=== PATIENT | female | born 1975 | race American Indian/Alaskan Native ===

== ENCOUNTER 2019-03-17 10:17 | Outpatient (CLI) | payer OTHER ==
--- NOTE | 2019-03-17 14:49 | Mammography Report ---
DIGITAL SCREENING MAMMOGRAM WITH CAD INDICATION: Baseline screening mammography. TECHNIQUE: Digital bilateral 2D mammography was obtained in the craniocaudal and mediolateral obliq ue projections. This examination was interpreted with the benefit of Computer-Aided Detection analysi s. FINDINGS: Breast Density: The breasts are heterogeneously dense, which may obscure small masses. There is no evidence of dominant mass, suspicious calcifications or architectural distortion in eith er breast. IMPRESSION: BI-RADS Category 1: Negative. No mammographic evidence of malignancy. Recommend routine screening m ammography in one year. A "normal" or negative report should not discourage follow up or biopsy of a clinically significant f inding. A written summary of these findings will be mailed to the patient. The patient will be entered into a mammography reporting system which will generate a reminder letter for the patient's next appointmen t at the appropriate interval. The [employer] recommends yearly mammograms starting at age 40 and continuing as l kristina as a woman is in good health. Breast MRI is recommended for women with an approximate 20-25% or greater lifetime risk of breast cancer, including women with a strong family history of breast or ova beni cancer or who have been treated for Hodgkin's disease. Signer Name: Elmo Anthony MD Signed: 03/17/2019 2:45 PM Workstation Name: [id number]
== END 2019-03-17 10:18 | disposition home or self-care (01) ==
LOC: MAMMO 10:17
PROVIDERS: ATTEND Obstetrics & Gynecology
DX: Z12.31 Encounter for screening mammogram for malignant neoplasm of breast (principal)
CPT/HCPCS: 77067

== ENCOUNTER 2022-05-11 10:04 | Outpatient (CLI) | payer OTHER ==
--- NOTE | 2022-05-17 12:27 | Mammography Report ---
LEFT DIGITAL DIAGNOSTIC MAMMOGRAM , 05/15/2022 LEFT LIMITED BREAST ULTRASOUND CLINICAL INFORMATION / INDICATION: 47-year-old female with palpable lump/fullness in the left axilla. TECHNIQUE: Digital left mammographic imaging was performed. Limited ultrasound was performed. COMPARISON: Prior mammogram 03/17/2019 FINDINGS: Breast Density: The breasts are heterogeneously dense, which may obscure small masses. MAMMOGRAPHIC FINDINGS: No dominant mass, suspicious calcifications, or architectural distortion in th e left breast. No interval change from 2019 mammogram. ULTRASOUND FINDINGS: Targeted ultrasound evaluation was performed of the area of interest. Sonograp hic evaluation of the left axilla did not demonstrate any suspicious abnormality. No solid mass or ab normal lymph node identified. IMPRESSION: No mammographic or sonographic evidence of malignancy in the left breast or axilla. Clini lorri correlation for left axillary fullness/lump is recommended. Follow up recommendation: Routine yearly screening mammogram. BI-RADS Category 1: NEGATIVE. A "normal" or negative report should not discourage follow up or biopsy of a clinically significant f inding. A written summary of these findings will be mailed to the patient. The patient will be entered into a mammography reporting system which will generate a reminder letter for the patient's next appointmen t at the appropriate interval. According to the [employer], yearly mammograms are recommended starting at age 40 and continuing as long as a woman is in good health. Breast MRI is recommended for women with an marifer roximately 20-25% or greater lifetime risk of breast cancer, including women with a strong family his tory of breast or ovarian cancer and women who have been treated for Hodgkin's disease. Signer Name: Negra Bell MD Signed: 05/17/2022 12:23 PM Workstation Name: [id number]
== END 2022-05-11 10:05 | disposition home or self-care (01) ==
LOC: MAMMO 10:04
PROVIDERS: ATTEND Obstetrics & Gynecology
DX: R22.32 Localized swelling, mass and lump, left upper limb (principal)